=== PATIENT | female | born 1965 | race Caucasian/White ===

== ENCOUNTER 2018-02-22 12:14 | Emergency (ER) | payer OTHER ==
[~2018-02-22] VITALS: Ht 152.4 cm; Wt 40.8 kg
[2018-02-22] MEDS ORDERED: SYNTHROID75 MCG PO (12:26)
== END 2018-02-22 14:35 | disposition home or self-care (01) ==
LOC: ER 12:14
DX: R19.7 Diarrhea, unspecified (principal); E86.0 Dehydration

== ENCOUNTER → 2018-07-23 | Emergency (ER) | payer OTHER ==
[~2018-07-23] VITALS: Ht 149.9 cm; Wt 48.1 kg
[~2018-07-23] MED LIST: SYNTHROID75 MCG PO; ZYNCOF 20-400120 ML PO
== END | disposition home or self-care (01) ==
LOC: ER 22:17
DX: R07.89 Other chest pain (principal)

== ENCOUNTER 2021-12-16 17:26 | Emergency (ER) | payer OTHER ==
[~2021-12-16] VITALS: Ht 144.8 cm; Wt 52.2 kg
[2021-12-16] MEDS ORDERED: DUI500 PO (18:19)
== END 2021-12-16 19:05 ==
LOC: ER 17:26
DX: L72.3 Sebaceous cyst (principal)

== ENCOUNTER 2022-02-13 10:29 | Emergency (ER) | payer OTHER ==
[~2022-02-13] VITALS: Ht 152.4 cm; Wt 63.5 kg
[~2022-02-13 10:29] MED LIST changes: +DUI500 PO
== END 2022-02-13 14:35 | disposition home or self-care (01) ==
LOC: ER 10:29
DX: B34.9 Viral infection, unspecified (principal); Z88.8 Allergy status to other drugs, medicaments and biological substances

== ENCOUNTER → 2022-08-05 | Emergency (ER) | payer OTHER ==
[~2022-08-05] VITALS: Ht 149.9 cm; Wt 47.6 kg
[~2022-08-05] MED LIST changes: +METRONIDAZOLE500 MG PO; +PEPCID AC20 MG PO
== END | disposition home or self-care (01) ==
LOC: ER 03:27
DX: A09 Infectious gastroenteritis and colitis, unspecified (principal); R10.9 Unspecified abdominal pain

== ENCOUNTER 2024-09-05 03:46 | Emergency (ER) | payer OTHER ==
[~2024-09-05] VITALS: Ht 162.6 cm; Wt 52.2 kg
[2024-09-05] MEDS ORDERED: METOCLOPRAMIDE HCL 5 MG/ML VIAL IM STA (05:02)
[2024-09-05] MEDS ORDERED: MECLIZINE HCL 25 MG TABLET PO STA (05:04)
[2024-09-05] MEDS ORDERED: HYOSCYAMINE SULFATE 0.125 MG TAB.SUBL SL ONE (05:15)
== END 2024-09-05 06:40 | disposition home or self-care (01) ==
LOC: ER 03:46
DX: H81.10 Benign paroxysmal vertigo, unspecified ear (principal)